=== PATIENT | male | born 1970 | race Caucasian/White ===

== ENCOUNTER 2017-05-12 18:28 | Emergency (ER) | payer MEDICARE, MEDICAID ==
[~2017-05-12] VITALS: Ht 177.8 cm; Wt 72.0 kg
[2017-05-13] MEDS ORDERED: SODIUM CHLORIDE 0.9% 1,000 ML IV ONE (02:15)
[2017-05-13 02:45] LABS: BASOPHILS % 0.6 % (0.0-2.0); EOSINOPHILS % 2.4 % (0.0-5.0); HEMATOCRIT. 34.1 % (42.0-52.0); HEMOGLOBIN. 10.6 g/dL (14.0-18.0); LYMPHOCYTES % 17.4 % (20.0-50.0); MEAN CORPUSCULAR HEMOGLOBIN 20.9 pg (28.0-32.0); MEAN CORPUSCULAR VOLUME 67.4 fL (80.0-94.0); MEAN PLATELET VOLUME 6.2 fl (7.4-10.4); MONOCYTES % 9.7 % (2.0-8.0); NEUTROPHILS % 69.9 % (40.0-76.0); PLATELET 476 x1000/uL (130-400); RED BLOOD CELL COUNT 5.07 mill/uL (4.7-6.1); RED CELL DISTRIBUTION WIDTH 18.4 % (11.6-14.6)
[2017-05-13 02:50] LABS: CHLORIDE 105 mEq/L (98-107)
[2017-05-13 02:55] LABS: ETHANOL BLOOD < 10 mg/dL
[2017-05-13 02:57] LABS: PLATELET ESTIMATE NORMAL
[2017-05-13 05:20] VITALS: BP 121/68
== END 2017-05-13 05:25 | disposition home or self-care (01) ==
LOC: ER 20:30
DX: J11.1 Influenza due to unidentified influenza virus with other respiratory manifestations (principal); F99 Mental disorder, not otherwise specified; Z21 Asymptomatic human immunodeficiency virus [HIV] infection status; Z59.0 Homelessness
CPT/HCPCS: 36415; 80053; 82962; 83605; 84484; 85025; 87040; 87804; 99284; G0482; J7030